=== PATIENT | female | born 1945 | race Caucasian/White ===

== ENCOUNTER 2016-04-17 09:42 | Outpatient (CLI) | payer MEDICARE ==
[2016-04-17 11:19] LABS: #Basophils 0.1 thou/uL (0.0-0.2); #Eosinphils 0.2 thou/uL (0.0-0.7); #Lymphocytes 2.9 thou/uL (1.20-3.40); #Monocytes 0.6 thou/uL (0.11-0.59); #Neutrophils 5.9 thou/uL (1.40-6.50); %Basophils 0.8 % (0.0-1.0); %Eosinophils 2.4 % (0.0-10.0); %Lymphocytes 29.6 % (21.0-51.0); %Monocytes 6.3 % (0.0-10.0); Hematocrit 42.5 % (36.0-47.0); Mean Platelet Volume 7.8 fL (7.4-10.4); Red Blood Cell (RBC) Count 4.67 mill/uL (4.20-5.40); White Blood Cell (WBC) Count 9.7 thou/uL (4.8-10.8)
[2016-04-17 11:42] LABS: Anion Gap 16 mmol/L (10-20); BUN (Urea Nitrogen) 16 mg/dL (9.8-20.1); Calc. Creatinine Clearance 0 mL/min (70-130); Calcium 9.6 mg/dL (7.8-10.44); Carbon Dioxide 26 mmol/L (23-31); Chloride 104 mmol/L (98-107); Estimated GFR-MDRD 44; LDL Cholesterol, Calculated 109 mg/dL
[2016-04-17 11:48] LABS: Hemoglobin A1c 9.8 % (4.0-6.0)
== END 2016-04-17 09:43 ==
LOC: NAVSJIPCSP 09:42
PROVIDERS: ATTEND Nurse Practitioner Family
DX: E11.9 Type 2 diabetes mellitus without complications (principal); I10 Essential (primary) hypertension; L98.9 Disorder of the skin and subcutaneous tissue, unspecified; E78.5 Hyperlipidemia, unspecified; R60.9 Edema, unspecified
CPT/HCPCS: 36415; 80048; 80061; 83036; 84443; 85025

== ENCOUNTER 2016-08-19 08:51 | Outpatient (CLI) | payer MEDICARE ==
[2016-08-19 12:49] LABS: #Basophils 0.1 thou/uL (0.0-0.2); #Eosinphils 0.3 thou/uL (0.0-0.7); #Lymphocytes 2.7 thou/uL (1.20-3.40); #Monocytes 0.6 thou/uL (0.11-0.59); #Neutrophils 4.3 thou/uL (1.40-6.50); %Basophils 1.2 % (0.0-1.0); %Eosinophils 4.2 % (0.0-10.0); %Lymphocytes 33.3 % (21.0-51.0); %Monocytes 7.1 % (0.0-10.0); %Neutrophils 54.2 % (42.0-75.0); Hemoglobin 11.6 g/dL (12.0-16.0); Mean Corpuscular HGB CONC 30.8 g/dL (32.0-36.0); Mean Corpuscular Hemoglobin 27.7 pg (27.0-31.0); Mean Platelet Volume 6.7 fL (7.4-10.4); Platelet Count 249 thou/uL (130-400); RBC Distribution Width 13.4 % (11.5-14.5); Red Blood Cell (RBC) Count 4.17 mill/uL (4.20-5.40)
[2016-08-19 13:06] LABS: ALT (SGPT) 13 U/L (8-55); AST (SGOT) 19 U/L (5-34); Albumin 4.1 g/dL (3.4-4.8); Alkaline Phosphatase 109 U/L (40-150); Anion Gap 16 mmol/L (10-20); BUN (Urea Nitrogen) 25 mg/dL (9.8-20.1); Bilirubin, Direct 0.2 mg/dL (0.1-0.3); Bilirubin, Total 0.5 mg/dL (0.2-1.2); Calc. Creatinine Clearance 0 mL/min (70-130); Calcium 9.7 mg/dL (7.8-10.44); Carbon Dioxide 23 mmol/L (23-31); Cardiac Risk 2.5 (Less than 4.5); Chloride 105 mmol/L (98-107); Cholesterol 165 mg/dL (< 200 Desired); Estimated GFR-MDRD 42; Glucose 129 mg/dL (83-110); HDL Cholesterol 65 mg/dL (>60 Neg Risk); LDL Cholesterol, Calculated 85 mg/dL; Potassium 4.1 mmol/L (3.5-5.1); Sodium 140 mmol/L (136-145); Triglycerides 76 mg/dL (Less than 150)
[2016-08-19 14:00] LABS: Hemoglobin A1c 6.9 % (4.0-6.0)
[2016-08-20 19:57] LABS: Bilirubin Negative (Negative); Blood, Urine Negative (Negative); Clarity Clear (Clear); Glucose, Urine (Dipstick) Negative (Negative); Leukocyte Negative (Negative); Nitrite Negative (Negative); Protein, Urine (Dipstick) Negative (Neg-Trace); Specific Gravity, Urine 1.015 (1.005-1.030); Urobilinogen 0.2 mg/dL (0.2-1.0)
== END 2016-08-19 08:52 | disposition home or self-care (01) ==
LOC: NAVSJIPCSP 08:51
PROVIDERS: ATTEND Family Medicine
DX: E78.5 Hyperlipidemia, unspecified (principal); E11.9 Type 2 diabetes mellitus without complications; I10 Essential (primary) hypertension; R60.9 Edema, unspecified; Z79.899 Other long term (current) drug therapy
CPT/HCPCS: 36415; 80048; 80061; 80076; 81003; 83036; 84443; 85025

== ENCOUNTER 2016-12-25 09:24 | Outpatient (CLI) | payer MEDICARE ==
[2016-12-25 12:28] LABS: #Basophils 0.1 thou/uL (0.0-0.2); #Eosinphils 0.5 thou/uL (0.0-0.7); #Lymphocytes 2.7 thou/uL (1.20-3.40); #Monocytes 0.7 thou/uL (0.11-0.59); #Neutrophils 5.7 thou/uL (1.40-6.50); %Basophils 1.1 % (0.0-1.0); %Eosinophils 5.1 % (0.0-10.0); %Lymphocytes 28.1 % (21.0-51.0); %Monocytes 6.8 % (0.0-10.0); Hemoglobin 10.8 g/dL (12.0-16.0); Mean Corpuscular HGB CONC 30.6 g/dL (32.0-36.0); Mean Corpuscular Hemoglobin 26.7 pg (27.0-31.0); Mean Corpuscular Volume 87.5 fl (81.0-99.0); Mean Platelet Volume 6.5 fL (7.4-10.4); Platelet Count 268 thou/uL (130-400); RBC Distribution Width 13.9 % (11.5-14.5); Red Blood Cell (RBC) Count 4.03 mill/uL (4.20-5.40); White Blood Cell (WBC) Count 9.7 thou/uL (4.8-10.8)
[2016-12-25 13:02] LABS: ALT (SGPT) 13 U/L (8-55); AST (SGOT) 18 U/L (5-34); Alkaline Phosphatase 100 U/L (40-150); Anion Gap 16 mmol/L (10-20); BUN (Urea Nitrogen) 18 mg/dL (9.8-20.1); Bilirubin, Direct 0.2 mg/dL (0.1-0.3); Bilirubin, Total 0.4 mg/dL (0.2-1.2); Calc. Creatinine Clearance 0 mL/min (70-130); Calcium 9.5 mg/dL (7.8-10.44); Carbon Dioxide 24 mmol/L (23-31); Cardiac Risk 2.3 (Less than 4.5); Chloride 107 mmol/L (98-107); Cholesterol 152 mg/dl (< 200 Desired); Estimated GFR-MDRD 55; Glucose 121 mg/dL (83-110); HDL Cholesterol 65 mg/dL (>60 Neg Risk); LDL Cholesterol, Calculated 71 mg/dL; Potassium 4.5 mmol/L (3.5-5.1); Protein, Total 6.9 g/dL (6.0-8.3); Sodium 142 mmol/L (136-145); Triglycerides 80 mg/dL (Less than 150)
== END 2016-12-25 09:25 | disposition home or self-care (01) ==
LOC: NAVSJIPCSP 09:24
PROVIDERS: ATTEND Family Medicine
DX: E11.9 Type 2 diabetes mellitus without complications (principal); E78.5 Hyperlipidemia, unspecified; N28.9 Disorder of kidney and ureter, unspecified; I10 Essential (primary) hypertension; R60.9 Edema, unspecified; Z79.899 Other long term (current) drug therapy
CPT/HCPCS: 36415; 80048; 80061; 80076; 83036; 84443; 85025

== ENCOUNTER 2021-09-13 21:21 | Emergency (ER) | payer OTHER, MEDICARE ==
[2021-09-13] MEDS ORDERED: Lidocaine 1% 20 ML MDV ONE (21:33)
[2021-09-13] MEDS ORDERED: Boostrix 0.5 ML (Tdap) VIAL ONE (22:17)
== END 2021-09-13 23:55 | disposition home or self-care (01) ==
LOC: NAV ERS 21:21
DX: S01.81XA Laceration without foreign body of other part of head, initial encounter (principal); S09.90XA Unspecified injury of head, initial encounter; Z23 Encounter for immunization; I10 Essential (primary) hypertension; E11.9 Type 2 diabetes mellitus without complications; Z79.84 Long term (current) use of oral hypoglycemic drugs; Z79.82 Long term (current) use of aspirin; W01.0XXA Fall on same level from slipping, tripping and stumbling without subsequent striking against object, initial encounter
CPT/HCPCS: 12011; 70450; 90471; 90715

== ENCOUNTER 2022-02-11 09:05 | Emergency (ER) | payer MEDICARE ==
[2022-02-11 10:13] LABS: #Basophils 0.1 thou/uL (0.0-0.2); #Lymphocytes 0.8 thou/uL (1.20-3.40); #Monocytes 0.4 thou/uL (0.11-0.59); #Neutrophils 4.6 thou/uL (1.40-6.50); %Eosinophils 0.7 % (0.0-10.0); %Lymphocytes 14.3 % (21.0-51.0); %Neutrophils 78.2 % (42.0-75.0); Hemoglobin 10.4 g/dL (12.0-16.0); Mean Corpuscular HGB CONC 30.2 g/dL (32.0-36.0); Mean Corpuscular Hemoglobin 27.9 pg (27.0-31.0); Mean Corpuscular Volume 92.5 fl (78.0-98.0); Mean Platelet Volume 7.3 fL (7.4-10.4); Platelet Count 156 thou/uL (130-400); Red Blood Cell (RBC) Count 3.73 mill/uL (4.20-5.40); White Blood Cell (WBC) Count 5.9 thou/uL (4.8-10.8)
[2022-02-11 10:27] LABS: ALT (SGPT) 12 U/L (8-55); AST (SGOT) 18 U/L (5-34); Albumin 3.7 g/dL (3.4-4.8); Alkaline Phosphatase 102 U/L (40-110); Anion Gap 17 mmol/L (10-20); BUN (Urea Nitrogen) 16 mg/dL (9.8-20.1); Bilirubin, Total 0.4 mg/dL (0.2-1.2); Calc. Creatinine Clearance 0 mL/min (70-130); Calcium 9.6 mg/dL (7.8-10.44); Carbon Dioxide 24 mmol/L (23-31); Chloride 104 mmol/L (98-107); Estimated GFR 49; Globulin 2.4 g/dL (2.4-3.5); Glucose 162 mg/dL (83-110); Potassium 4.2 mmol/L (3.5-5.1); Protein, Total 6.1 g/dL (5.8-8.1); Sodium 141 mmol/L (136-145)
[2022-02-11 11:01] LABS: Bilirubin Negative (Negative); Blood, Urine Negative (Negative); Clarity Clear (Clear); Glucose, Urine (Dipstick) Negative (Negative); Ketone, Urine Trace mg/dL (Negative); Leukocyte Negative (Negative); Nitrite Negative (Negative); Protein, Urine (Dipstick) > or equal to 300 mg/dL (Neg-Trace); Specific Gravity, Urine 1.025 (1.005-1.030); Urobilinogen 0.2 mg/dL (Less than 2); pH, Urine 5.5 (5.0-9.0)
[2022-02-11 11:05] LABS: Bacteria/HPF None Seen HPF (None Seen); RBC/HPF None Seen HPF (0-3); Squamous Epithelial 0-3 HPF (0-3); WBC/HPF None Seen HPF (0-3)
== END 2022-02-11 11:21 | disposition home or self-care (01) ==
LOC: NAV ERS 09:05
DX: I10 Essential (primary) hypertension (principal); D64.9 Anemia, unspecified; N28.9 Disorder of kidney and ureter, unspecified; E11.9 Type 2 diabetes mellitus without complications; Z79.84 Long term (current) use of oral hypoglycemic drugs; Z79.899 Other long term (current) drug therapy
CPT/HCPCS: 80053; 81003; 81015; 84443; 85025; 99284